=== PATIENT | male | born 1960 | race Caucasian/White ===

== ENCOUNTER 2024-07-17 19:05 | Emergency (ER) | payer MEDICARE ==
[~2024-07-17] VITALS: Ht 188 cm; Wt 88.5 kg
[2024-07-17 19:12] VITALS: BP 100/81; PULSE 99; RESP 15; O2SAT 92
--- NOTE | 2024-07-17 19:23 | Physician Documentation ---
History of Present Illness ~ Chief Complaint: Syncope Stated Complaint: ARM NUMBNESS Primary Medical Doctor: DR REYES [facility] This is a 64-year-old male who presents after an episode of syncope while sitting, patient reports that he was working in his yd earlier this morning and then this afternoon sat in his garage and while drinking beer he lost consciousness though could still hear, patient's spouse reports patient was slurring his words and not appropriately responding and went limp while sitting in a chair lasting approximately 5 minutes, patient's spouse reports he started recovering after they placed a cool cloth on him. Medication Reconciliation Allergies: Coded Allergies: codeine (Verified Allergy, Unknown, 07/17/24) Review of Systems ROS As stated above in the HPI, otherwise all systems are reviewed and negative. Physical Exam Vital Signs: Heart Rate: 99, Respiratory Rate: 15, BP: 100/81, Pulse Oximetry: 92, Weight: 88.550 Physical Exam VITALS: Reviewed and as above. GENERAL: Alert, nontoxic appearing, no apparent distress. RESPIRATORY: No increased work of breathing, no respiratory distress, speaking in full clear sentences Progress Results/Orders Results/Orders Orders - JAMES OTTO Electrocardiogram (07/17/24 ) Completed Orders - JAMES OTTO Cbc/Diff (07/17/24 19:18) CMP (07/17/24 19:18) Vital Signs 07/17/24 19:12 Pulse 99 Resp 15 B/P (MAP) 100/81 Pulse Ox 92 Laboratory Tests Test 07/17/24 19:42 White Blood Count 9.1 Red Blood Count 4.88 Hemoglobin 15.0 Hematocrit 44.5 Mean Corpuscular Volume 91.2 Mean Corpuscular Hemoglobin 30.7 Mean Corpuscular Hemoglobin Concent 33.7 Red Cell Distribution Width 14.1 Platelet Count 250 Mean Platelet Volume 8.0 Neutrophils (%) (Auto) 81.1 H Lymphocytes (%) (Auto) 10.5 L Monocytes (%) (Auto) 5.5 Eosinophils (%) (Auto) 2.1 Basophils (%) (Auto) 0.8 Neutrophils # (Auto) 7.4 Lymphocytes # (Auto) 1.0 L Monocytes # (Auto) 0.5 Eosinophils # (Auto) 0.2 Basophils # (Auto) 0.1 CBC Comment Sodium Level 140 Potassium Level 3.8 Chloride Level 103 Carbon Dioxide Level 26.5 Anion Gap 11 Blood Urea Nitrogen 29 H Creatinine 1.52 H Estimated GFR/1.73 m2 46 BUN/Creatinine Ratio 19.1 Glucose Level 168 H Calcium Level 9.1 Total Bilirubin 0.9 Aspartate Amino Transf (AST/SGOT) 21 Alanine Aminotransferase (ALT/SGPT) 31 Alkaline Phosphatase 69 Total Protein 7.3 Albumin 3.9 Globulin 3.4 Albumin/Globulin Ratio 1.1 Chemistry Comments Medical Decision Making Findings MSE performed in triage and patient returned to ED lobby by nursing staff awaiting an available ED room, it appears patient has eloped Differential Dx:Considerations: Include: anemia, CVA, cerebral thrombosis, dehydration, electrolyte disorder, hypoglycemia, hypovolemia, Meniere's disease, pulmonary embolus, TIA, vasovagal, vertigo central, vertigo peripheral, vestibular neuronitis Departure Disposition: LEFT AWOL/ELOPED Impression: Primary Impression: Syncope Qualified Codes: R55 - Syncope and collapse Referrals: NO PRIMARY CARE PROVIDER (PCP) Signature Scribe Signature: No scribe Attestation: The note accurately reflects work and decisions made by me.EVANGELISTA Tyler 07/18/24 03:27 JAMES OTTO July 17, 2024 19:23
[2024-07-17 20:01] LABS: BASOPHILS # (AUTO) 0.1 X10'3 (0-0.2); BASOPHILS % (AUTO) 0.8 % (0-1); EOSINOPHILS # (AUTO) 0.2 X10'3 (0-0.9); EOSINOPHILS % (AUTO) 2.1 % (0-6); HEMATOCRIT 44.5 % (42.0-52.0); LYMPHOCYTES % (AUTO) 10.5 % (21-51); MEAN CORPUSCULAR HEMOGLOBIN 30.7 PG (27.0-31.0); MEAN CORPUSCULAR HGB CONC 33.7 g/dL (33.0-36.5); MEAN CORPUSCULAR VOLUME 91.2 FL (78-98); MONOCYTES # (AUTO) 0.5 X10'3 (0-0.9); MONOCYTES % (AUTO) 5.5 % (2-12); NEUTROPHILS # (AUTO) 7.4 X10'3 (1.8-7.7); NEUTROPHILS % (AUTO) 81.1 % (42-75); PLATELET COUNT 250 X10'3 (140-440); RED BLOOD COUNT 4.88 X10'6 (4.70-6.10); RED CELL DISTRIBUTION WIDTH 14.1 % (11.5-14.5); WHITE BLOOD COUNT 9.1 X10'3 (4.5-11.0)
[2024-07-17 20:11] LABS: ALANINE AMINOTRANSFERASE 31 U/L (12-78); ALBUMIN 3.9 G/DL (3.4-5.0); ALBUMIN/GLOBULIN RATIO 1.1 (1.1-1.5); ALKALINE PHOSPHATASE 69 IU/L (46-116); ANION GAP 11 (8-16); ASPARTATE AMINO TRANSFERASE 21 U/L (10-37); BILIRUBIN,TOTAL 0.9 MG/DL (0.1-1.0); BLOOD UREA NITROGEN 29 MG/DL (7-18); BUN/CREATININE RATIO 19.1 (10.0-20.0); CALCIUM 9.1 MG/DL (8.5-10.1); CHLORIDE 103 MMOL/L (99-107); CREATININE 1.52 MG/DL (0.60-1.10); GLUCOSE 168 MG/DL (70-104); POTASSIUM 3.8 MMOL/L (3.5-5.1); SODIUM 140 MMOL/L (135-145); TOTAL CARBON DIOXIDE 26.5 MMOL/L (24-32); TOTAL PROTEIN 7.3 G/DL (6.4-8.2); eCRCL 56 ML/MIN; eGFR 46 ML/MIN
--- NOTE | 2024-07-18 07:05 | ELECTROCARDIOGRAPH REPORT ---
[facility] Test Date: 2024-07-17 Test Time: 19:19:14 Pat Name: ANTON RUTH Department: EMERGENCY ROOM Room: Gender: M Seo Strategist: : 1960 Requested By: JAMES OTTO Order Number: [id number] Reading MD: Measurements Intervals [place] Rate: 97 P: 50 CO: 161 QRS: 11 QRSD: 93 T: 37 QT: 347 QTc: 441 Interpretive Statements Sinus rhythm Inferior infarct, old Please click the below link to view image of tracing.
== END 2024-07-17 22:06 | disposition left against medical advice (07) ==
LOC: ER 19:06
DX: R55 Syncope and collapse (principal); Z88.5 Allergy status to narcotic agent
CPT/HCPCS: 36415; 80053; 85025; 93005; 99284